=== PATIENT | female | born 1970 | race Two or more races ===

== ENCOUNTER 2023-06-29 09:31 | Inpatient (IN) | payer OTHER ==
[~2023-06-29] VITALS: Ht 152.4 cm; Wt 52.2 kg
[2023-06-29] MEDS ORDERED: NEURONTIN300 MG (10:28)
[2023-07-06] MEDS ORDERED: PERCOCET 5-3251 EACH PO (07:30)
[2023-07-06] MEDS ORDERED: AMOX-CLAV 875-1 EACH PO (07:30)
[2023-07-06] MEDS ORDERED: MEDROLPACK PO (07:30)
[2023-07-06] MEDS ORDERED: COLACE100 MG PO (07:31)
[2023-07-06] MEDS ORDERED: GABAPENTIN100 M2 PO (07:31)
[2023-07-06] MEDS ORDERED: NEURONTIN800 MG PO (07:32)
[2023-07-07 07:59] LABS: HEMATOCRIT 35.8 % (36.0-45.00); HEMOGLOBIN 12.2 g/dL (12.0-15.00); MEAN CELL VOLUME 80.3 fL (80.00-100.00); MEAN CORPUSCULAR HEMOGLOBIN 27.3 pg (27.00-32.0); PLATELET COUNT 225 K/uL (150-450); RED BLOOD COUNT 4.46 M/uL (4.00-6.00); RED CELL DISTRIBUTION WIDTH 15.5 % (11.5-14.5)
[2023-07-07 08:28] LABS: CREATININE SERUM 0.68 mg/dL (0.55-1.02); GFR 90.51; POTASSIUM 3.9 mEq/L (3.5-5.1)
== END 2023-07-08 10:19 | disposition home or self-care (01) | DRG 454 ==
LOC: SURG 07-06 07:00 → O/R 07-06 07:44 → PED 07-06 10:37 → SURG 07-06 11:30 → PED 07-08 10:19
PROVIDERS: ADMIT Orthopaedic Surgery Orthopaedic Surgery of the Spine; ATTEND Orthopaedic Surgery Orthopaedic Surgery of the Spine
PROC: 0SG00K1 Fusion of Lumbar Vertebral Joint with Nonautologous Tissue Substitute, Posterior Approach, Posterior Column, Open Approach (ICD-10-PCS; 2023-07-06)
PROC: 0ST20ZZ Resection of Lumbar Vertebral Disc, Open Approach (ICD-10-PCS; 2023-07-06)
PROC: 0QB30ZZ Excision of Left Pelvic Bone, Open Approach (ICD-10-PCS; 2023-07-06)
PROC: 07DR0ZX Extraction of Iliac Bone Marrow, Open Approach, Diagnostic (ICD-10-PCS; 2023-07-06)
PROC: 4A12X4Z Monitoring of Cardiac Electrical Activity, External Approach (ICD-10-PCS; 2023-07-06)
PROC: 4A1104G Monitoring of Peripheral Nervous Electrical Activity, Intraoperative, Open Approach (ICD-10-PCS; 2023-07-06)
PROC: 3E0F7SF Introduction of Other Gas into Respiratory Tract, Via Natural or Artificial Opening (ICD-10-PCS; 2023-07-06)
PROC: XRGB0R7 Fusion of Lumbar Vertebral Joint using Custom-Made Anatomically Designed Interbody Fusion Device, Open Approach, New Technology Group 7 (ICD-10-PCS; principal; 2023-07-06 07:00)
DX: M43.16 Spondylolisthesis, lumbar region (principal); M96.0 Pseudarthrosis after fusion or arthrodesis; M48.062 Spinal stenosis, lumbar region with neurogenic claudication; M51.36 Other intervertebral disc degeneration, lumbar region

== ENCOUNTER → 2025-01-20 | Emergency (ER) | payer OTHER ==
[~2025-01-20] MED LIST: AMOX-CLAV 875-1 EACH PO; COLACE100 MG PO; GABAPENTIN100 M2 PO; MEDROLPACK PO; NEURONTIN300 MG; NEURONTIN800 MG PO; PERCOCET 5-3251 EACH PO
== END | disposition left against medical advice (07) ==
LOC: ER 13:15
DX: Z53.21 Procedure and treatment not carried out due to patient leaving prior to being seen by health care provider (principal)